=== PATIENT | male | born 1960 | race Two or more races ===

== ENCOUNTER 2022-01-29 04:35 | Day surgery (SDC) | payer OTHER ==
[2022-01-27 15:32] VITALS: BMI 33.6
[2022-01-29 08:30] VITALS: TEMP 97.5
[2022-01-29 09:10] VITALS: BP 106/77; PULSE 67
== END 2022-01-29 09:09 | disposition home or self-care (01) ==
LOC: JASU-ENDO 04:35
PROVIDERS: ATTEND Internal Medicine Gastroenterology
PROC: 0DJD8ZZ Inspection of Lower Intestinal Tract, Via Natural or Artificial Opening Endoscopic (ICD-10-PCS; principal; 2022-01-29 08:00)
DX: Z12.11 Encounter for screening for malignant neoplasm of colon (principal); Z80.0 Family history of malignant neoplasm of digestive organs